=== PATIENT | female | born 1950 | race Caucasian/White ===

== ENCOUNTER 2021-07-16 11:44 | Inpatient (IN) | payer OTHER ==
[~2021-07-16] VITALS: Ht 157.5 cm; Wt 47.2 kg
[2021-07-16 12:45] LABS: HEMOGLOBIN. 12.4 g/dL (12.0-16.0); MEAN CORPUSCULAR HEMOGLOBIN 29.7 pg (28.0-32.0); MEAN CORPUSCULAR VOLUME 88.7 fL (81.0-99.0); MEAN PLATELET VOLUME 6.9 fl (7.4-10.4); PLATELET 204 x1000/uL (130-400); RED BLOOD CELL COUNT 4.17 mill/uL (4.2-5.4); RED CELL DISTRIBUTION WIDTH 13.6 % (11.6-14.6)
[2021-07-16 12:54] LABS: CHLORIDE 104 mEq/L (98-107)
[2021-07-16 13:01] LABS: ETHANOL BLOOD < 10 mg/dL
[2021-07-16 13:12] LABS: PLATELET ESTIMATE NORMAL
[2021-07-16] MEDS ORDERED: SODIUM CHLORIDE 0.9% 1,000 ML IV ONE (14:15)
[2021-07-16] MEDS ORDERED: IOHEXOL-350 100 ML BOTTLE ONE (15:00)
[2021-07-16 16:28] LABS: CLARITY URINE CLEAR (CLEAR); COLOR URINE YELLOW (YELLOW); KETONES URINE NEGATIVE (NEGATIVE); LEUKOCYTE ESTERASE URINE NEGATIVE (NEGATIVE); NITRITE URINE NEGATIVE (NEGATIVE); OCCULT BLOOD URINE NEGATIVE (NEGATIVE); PROTEIN URINE TRACE (NEGATIVE); SPECIFIC GRAVITY URINE 1.086 (1.005-1.030)
[2021-07-16 16:46] LABS: *COCAINE SCREEN URINE NEGATIVE (NEGATIVE); METHADONE URINE SCREEN NEGATIVE (NEGATIVE); OPIATES URINE SCREEN NEGATIVE (NEGATIVE)
[2021-07-16 16:47] LABS: *AMPHETAMINES SCREEN URINE NEGATIVE (NEGATIVE); *BARBITURATES SCREEN URINE NEGATIVE (NEGATIVE); *BENZODIAZEPINES SCREEN URINE NEGATIVE (NEGATIVE); CANNABINOID URINE SCREEN NEGATIVE (NEGATIVE); PHENCYCLIDINE URINE SCREEN NEGATIVE (NEGATIVE)
[2021-07-16] MEDS ORDERED: ASPIRIN 81MG TABLET PO ONE (17:15)
[2021-07-16 21:38] VITALS: BP 132/66
[2021-07-16 22:00] VITALS: BP 130/68
[2021-07-17] VITALS: BP 118/49
[2021-07-17 08:00] VITALS: BP 113/57
[2021-07-17 08:35] LABS: BASOPHILS % 0.5 % (0.0-2.0); EOSINOPHILS % 0.6 % (0.0-5.0); HEMOGLOBIN. 12.7 g/dL (12.0-16.0); LYMPHOCYTES % 22.4 % (20.0-50.0); MEAN CORPUSCULAR HEMOGLOBIN 30.5 pg (28.0-32.0); MEAN CORPUSCULAR VOLUME 86.6 fL (81.0-99.0); MEAN PLATELET VOLUME 6.9 fl (7.4-10.4); MONOCYTES % 14.6 % (2.0-8.0); NEUTROPHILS % 61.9 % (40.0-76.0); PLATELET 205 x1000/uL (130-400); RED BLOOD CELL COUNT 4.15 mill/uL (4.2-5.4); RED CELL DISTRIBUTION WIDTH 13.4 % (11.6-14.6)
[2021-07-17 08:46] LABS: CHLORIDE 110 mEq/L (98-107)
[2021-07-17 08:57] LABS: LDL CHOLESTEROL 114 mg/dL (5-100)
[2021-07-17 08:59] LABS: HDL CHOLESTEROL 46 mg/dL (40-59)
[2021-07-17] MEDS ORDERED: ENOXAPARIN 40MG/0.4ML SYR SUBCUT SCH (09:00)
[2021-07-17] MEDS ORDERED: SODIUM CHLORIDE 0.9% 1000ML BAG (SEPSIS BOLUS) IV NR (11:00)
[2021-07-17] MEDS: ASPIRIN 81MG TABLET PO SCH (12:15)
[2021-07-17 16:00] VITALS: BP 106/50
[2021-07-17 20:00] VITALS: BP 110/58
[2021-07-17] MEDS: ATORVASTATIN CALCIUM 40MG TABLET PO SCH (21:57)
[2021-07-18] VITALS: BP 117/62
[2021-07-18 04:30] VITALS: BP 120/58
[2021-07-18 08:00] VITALS: BP 107/58
[2021-07-18] MEDS: ASPIRIN 81MG TABLET PO SCH (09:26)
[2021-07-18] MEDS: ENOXAPARIN 30MG/0.3ML SYR SUBCUT SCH (09:27)
[2021-07-18 12:00] VITALS: BP 113/57
[2021-07-18 16:00] VITALS: BP 106/51
[2021-07-18 20:00] VITALS: BP 128/68
[2021-07-18] MEDS: ATORVASTATIN CALCIUM 40MG TABLET PO SCH (22:04)
[2021-07-18 22:09] LABS: CHLORIDE 107 mEq/L (98-107)
[2021-07-18 22:30] LABS: BASOPHILS % 0.5 % (0.0-2.0); EOSINOPHILS % 1.4 % (0.0-5.0); HEMATOCRIT. 37.3 % (36.0-48.0); HEMOGLOBIN. 12.9 g/dL (12.0-16.0); LYMPHOCYTES % 41.8 % (20.0-50.0); MEAN CORPUSCULAR HEMOGLOBIN 29.7 pg (28.0-32.0); MEAN CORPUSCULAR VOLUME 86.2 fL (81.0-99.0); MEAN PLATELET VOLUME 7.5 fl (7.4-10.4); MONOCYTES % 11.8 % (2.0-8.0); NEUTROPHILS % 44.5 % (40.0-76.0); PLATELET 236 x1000/uL (130-400); RED BLOOD CELL COUNT 4.33 mill/uL (4.2-5.4); RED CELL DISTRIBUTION WIDTH 13.2 % (11.6-14.6)
[2021-07-19] VITALS: BP 108/54
[2021-07-19 04:00] VITALS: BP 116/64
[2021-07-19 08:00] VITALS: BP 113/47
[2021-07-19] MEDS: ENOXAPARIN 30MG/0.3ML SYR SUBCUT SCH (09:10)
[2021-07-19] MEDS: ASPIRIN 81MG TABLET PO SCH (09:10)
[2021-07-19 12:00] VITALS: BP 107/44
[2021-07-19] MEDS ORDERED: ASPI-986 MT (14:36)
[2021-07-19] MEDS ORDERED: LIP40 PO (14:36)
[2021-07-19 16:00] VITALS: BP 115/50
[2021-07-19 17:19] VITALS: BP 115/50
== END 2021-07-19 18:15 | disposition home or self-care (01) | DRG 64 ==
LOC: ER 11:44 → 7WST 16:31 → EDBEDREQ 16:35 → EDBEDREQSVC 16:35 → ENRESERV 20:06
PROVIDERS: ADMIT Family Medicine; ATTEND Family Medicine
DX: I63.9 Cerebral infarction, unspecified (principal); U07.1 COVID-19; E44.0 Moderate protein-calorie malnutrition; Z68.1 Body mass index [BMI] 19.9 or less, adult; G81.91 Hemiplegia, unspecified affecting right dominant side; R47.01 Aphasia; E78.5 Hyperlipidemia, unspecified; R29.810 Facial weakness; R73.9 Hyperglycemia, unspecified; R29.710 NIHSS score 10
CPT/HCPCS: 36415; 70496; 70498; 71045; 80053; 80061; 80305; 80320; 81003; 84484; 85025; 87426; 93005; 97162; 97166; 97535; 99291; J1650; J7030; J7040; Q9967; U0003; U0005; G0480